=== PATIENT | female | born 1955 | race Two or more races ===

== ENCOUNTER 2023-10-20 06:00 | Day surgery (SDC) | payer OTHER ==
[~2023-10-20 06:00] MED LIST: CEFAZOLIN SODIUM 1,000 MG VIAL IV SCH; NABUMETONE500 MG PO; PERCOCET 5/3251 TAB PO
[2023-10-20] MEDS ORDERED: CEFAZOLIN SODIUM 1,000 MG VIAL IV SCH (13:45)
[2023-10-20] MEDS ORDERED: GENTAMICIN SULFATE 40 MG/ML VIAL IR ONE (13:45)
[2023-10-20] MEDS ORDERED: MACROBID 100 M100 MG PO (13:52)
[2023-10-20] MEDS ORDERED: TRAM1TAB98 PO (13:53)
== END 2023-10-20 17:50 | disposition home or self-care (01) ==
LOC: CIR.AMB 06:00
PROVIDERS: ATTEND Obstetrics & Gynecology Gynecology
DX: N81.11 Cystocele, midline (principal); N81.5 Vaginal enterocele; N81.6 Rectocele; E03.9 Hypothyroidism, unspecified